=== PATIENT | female | born 1990 | race Caucasian/White ===

== ENCOUNTER 2017-04-23 19:20 | Emergency (ER) | payer BC ==
[~2017-04-23] VITALS: Ht 165.1 cm; Wt 67.1 kg
--- NOTE | 2017-04-23 19:20 | NUR ---
PT AMBULATORY TO ER BED 09. C/O SOB/ CHEST TIGHTNESS X 2 DAYS AND IS WORST TODAY. 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 GOWNED AND PLACED ON MONITOR. NAD NOTED. AWAITING MD VILLEGAS.
--- NOTE | 2017-04-23 19:54 | NUR ---
JOSÉ MIGUEL GARCIA AT BEDSIDE FOR EVAL.
--- NOTE | 2017-04-23 20:05 | NUR ---
RADIOLOGY AT BEDSIDE FOR CHEST XRAY.
[2017-04-23 21:01] VITALS: BP 121/60
--- NOTE | 2017-04-23 21:01 | NUR ---
Patient discharged to home in stable condition. Written and verbal after care instructions given. Patient verbalizes understanding of instruction.
== END 2017-04-23 21:02 | disposition home or self-care (01) ==
LOC: ER 19:26
DX: R07.89 Other chest pain (principal); R06.02 Shortness of breath
CPT/HCPCS: 71010; 84703; 93005; 96372; 99284; A4606; J1100; Z7610

== ENCOUNTER 2017-06-14 20:56 | Emergency (ER) | payer BC, OTHER ==
[~2017-06-14] VITALS: Ht 165.1 cm; Wt 68.0 kg
--- NOTE | 2017-06-14 21:00 | NUR ---
PATIENT TO ED DT HEADACHE, PRESSURE LIKE, 10/10 FOR FEW DAYS WORST TODAY. PATIENT IS AFEBRILE WITH VSS
--- NOTE | 2017-06-14 21:15 | NUR ---
JOHN GARCIA AT BEDSIDE
[2017-06-14] MEDS ORDERED: diphenhydrAMINE HCL 50 MG/ML VIAL ONE (21:27)
[2017-06-14] MEDS ORDERED: METOCLOPRAMIDE HCL 10 MG/2 ML VIAL ONE (21:28)
[2017-06-14] MEDS ORDERED: KETOROLAC TROMETHAMINE INJ 30 MG/ML VIAL ONE (21:28)
[2017-06-14] MEDS ORDERED: METOCLOPRAMIDE HCL 10 MG/2 ML VIAL IV ONE (21:30)
[2017-06-14] MEDS ORDERED: IV NS 0.9% 1,000 ML BAG IV ONE (21:30)
[2017-06-14] MEDS ORDERED: KETOROLAC TROMETHAMINE INJ 30 MG/ML VIAL IV ONE (21:30)
[2017-06-14] MEDS ORDERED: diphenhydrAMINE HCL 50 MG/ML VIAL IV ONE (21:30)
[2017-06-14 23:15] VITALS: BP 110/72
== END 2017-06-14 23:17 | disposition home or self-care (01) ==
LOC: ER 20:57
DX: G43.909 Migraine, unspecified, not intractable, without status migrainosus (principal); J06.9 Acute upper respiratory infection, unspecified
CPT/HCPCS: 96361; 96374; 96375; 99284; A4606; J1200; J1885; J2765; Z7610